=== PATIENT | male | born 1990 | race Caucasian/White ===

== ENCOUNTER 2019-09-01 16:46 | Emergency (ER) | payer OTHER ==
[2019-09-01 16:55] VITALS: BP 135/71
--- NOTE | 2019-09-01 17:10 | ED Physician Documentation ---
PD HPI UPPER EXT INJURY - Stated complaint Stated Complaint: LT PINKY LAC/INJ - Chief complaint Chief Complaint: Laceration - History obtained from History obtained from: Patient - History of Present Illness Location: Left, Finger Where injury occurred: Home Recently seen: Not recently seen - Additonal information Additional information: This is a 29-year-old who was cutting some potatoes at home with a very sharp knife and cut just the very tip of his left pinky finger off. It took a small sliver of the nail as well. He says there is not a significant amount of pain. No other injury. He did save the tip and ice. He is up-to-date on his tetanus vaccine because he is in the [place]. Review of Systems Skin: reports: Laceration (s) PD PAST MEDICAL HISTORY - Present Medications Home Medications: Ambulatory Orders Medication Instructions Recorded Confirmed No Known Home Medications 09/01/19 09/01/19 - Allergies Allergies/Adverse Reactions: Allergies Allergy/AdvReac Type Severity Reaction Status Date / Time No Known Drug Allergies Allergy Verified 09/01/19 16:54 PD ED PE NORMAL - Vitals Vital signs reviewed: Yes - General General: Alert and oriented X 3, No acute distress, Well developed/nourished - Derm Derm: Other (There is a very small piece of the tip of the left pinky finger with a sliver of nail that is been removed. There is only may be 1-1.5 mm of Fat pad on the undersurface of the piece that was sliced off. I do not feel the bone tip.) - Neuro Neuro: Alert and oriented X 3, No motor deficit, No sensory deficit, Normal speech Results - Vitals Vitals: Vital Signs - 24 hr 09/01/19 16:51 Temperature 36.8 C Heart Rate 64 Respiratory 18 Rate Blood Pressure 135/71 H O2 Saturation 100 PD MEDICAL DECISION MAKING - ED course Complexity details: d/w patient ED course: We discussed the risk and benefits of trying to attach this small piece of the tip of his finger and after lengthy discussion he elected not to have it placed back on and to let it heal by secondary intention. We discussed how to care for this at home. He should take ibuprofen and/or Tylenol if needed for pain. Follow-up if any signs of infection [place]. Departure - Departure Disposition: 01 Home, Self Care Clinical Impression: Avulsion, skin Condition: Good Instructions: ED Avulsion Dermal Follow-Up: PARRISH Diamond [Provider Group] Comments: It would be ideal if you can keep our bandage on for the next 2 to 3 days just do not get it wet and keep it clean. If it gets wet it needs to come off. When you go to remove our bandage if it stuck to the wound run it under tap water to loosen it and remove it. You can then apply antibiotic ointment over the open area little bit of padding and some bandaging over it. This will take several days if not several weeks to completely heal over. Follow-up immediately if any signs of infection to include purulent drainage, redness spreading up the finger or hand.
== END 2019-09-01 17:43 | disposition home or self-care (01) ==
LOC: ED 16:46
DX: S61.307A Unspecified open wound of left little finger with damage to nail, initial encounter (principal); W26.0XXA Contact with knife, initial encounter; Y93.G1 Activity, food preparation and clean up; Y92.009 Unspecified place in unspecified non-institutional (private) residence as the place of occurrence of the external cause
CPT/HCPCS: 99282